=== PATIENT | male | born 1950 | race Caucasian/White ===

== ENCOUNTER 2018-03-28 14:27 | Emergency (ER) | payer MEDICARE ==
[2018-03-28 14:45] VITALS: BP 177/85
--- NOTE | 2018-03-28 16:00 | ED Physician Documentation ---
PD HPI HEENT - Stated complaint Stated Complaint: NECK SWOLLEN - Chief complaint Chief Complaint: Heent - History obtained from History obtained from: Patient - History of Present Illness Timing - onset: How many weeks ago (3-4) Timing - details: Gradual onset, Still present (it is more swelling, tender the past few days.) Recently seen: Clinic (seen in clinic and referred to get U/S.) Review of Systems Constitutional: denies: Fever, Chills, Myalgias Ears: denies: Drainage/discharge Nose: denies: Rhinorrhea / runny nose, Congestion Throat: denies: Sore throat PD PAST MEDICAL HISTORY - Past Medical History Cardiovascular: None Respiratory: None Neuro: None Endocrine/Autoimmune: None - Present Medications Home Medications: Ambulatory Orders Medication Instructions Recorded Confirmed Cephalexin [Keflex] 500 mg PO QID #24 capsule 03/28/18 Naproxen 375 mg PO BID #20 tablet 03/28/18 - Allergies Allergies/Adverse Reactions: Allergies Allergy/AdvReac Type Severity Reaction Status Date / Time No Known Drug Allergies Allergy Verified 03/28/18 14:44 PD ED PE NORMAL - Vitals Vital signs reviewed: Yes - General General: Alert and oriented X 3, No acute distress, Well developed/nourished - HEENT HEENT: Ears normal, Moist mucous membranes, Pharynx benign, Other (left side of neck with 2-3 cm diameter and rounded tenderness. No redness over the skin. ) - Neck Neck: Supple, no meningeal sign, Other (left sided adenopathy with bedsie U/S showing glandular sctrucutre. No abscess) - Cardiac Cardiac: RRR, No murmur - Respiratory Respiratory: Clear bilaterally - Derm Derm: Normal color, Warm and dry, No rash - Neuro Neuro: Alert and oriented X 3, No motor deficit, Normal speech Results - Vitals Vitals: Oxygen O2 Source Room air - Rads (name of study) bedside U/S Radiology: EMP read contemporaneously (the lump has structure , good circumstances with v) PD MEDICAL DECISION MAKING - ED course Complexity details: considered differential (isolated node to left of neck, with now swelling of it. Consider infectious adenitis at this point, but has underlying process can do a biopsy so [facility] ), d/w patient Departure - Departure Disposition: 01 Home, Self Care Clinical Impression: Cervical lymphadenitis Condition: Stable Record reviewed to determine appropriate education?: Yes Instructions: ED Cervical Adenitis Abx Tx Follow-Up: Dave Viera MD [Primary Care Provider] - Rolando Lopez MD [Provider Admit Priv/Credential] - Prescriptions: Cephalexin [Keflex] 500 mg PO QID #24 capsule Naproxen 375 mg PO BID #20 tablet Comments: Warm moist towels to the lymph node area couple times a day to promote good blood flow to the area and help carry away debris and infection. Naproxen twice daily for 7-10 days. Cephalexin antibiotic as directed. Initially will treated as inflammation and infection of the lymph node. If it has not resolved well for the next week or so, then a lymph node biopsy is likely indicated. He can follow-up with surgery for that and they should be able to do it in their office. Call the surgery office for an appointment for about a week from now. Discharge Date/Time: 03/28/18 17:06
== END 2018-03-28 17:06 | disposition home or self-care (01) ==
LOC: ED 14:27
DX: R59.1 Generalized enlarged lymph nodes (principal)
CPT/HCPCS: 99283

== ENCOUNTER 2018-04-22 14:37 | Outpatient (CLI) | payer MEDICARE ==
--- NOTE | 2018-04-22 16:03 | Ultrasound Report ---
Reason: URINARY FREQUENCY,2.5CM FIXED FIRM L ANTERIOR NECK Procedure Date: 04/22/2018 Accession Number: [id number] / [id number] Procedure: US - Head or Neck Soft Tissue CPT Code: FULL RESULT: EXAM: NECK ULTRASOUND EXAM DATE: 04/22/2018 03:35 PM. CLINICAL HISTORY: URINARY FREQUENCY,2. 5CM FIXED FIRM L ANTERIOR NECK. COMPARISON: 04/22/2018 3:48 PM. TECHNIQUE: Real-time sonographic imaging was performed by the jackaroo utilizing color-flow. Multiple group sales representative static images were saved for review. FINDINGS: The palpable finding is identified as a 2.8 x 1.4 x 1.9 cm hypoechoic mass with vascularity. The finding is nonspecific. There is no evidence of abscess formation. IMPRESSION: Abnormal appearing to an 8 cm mass is nonspecific. Given reported history of decreased size with antibiotic administration, short-term ultrasound follow-up is reasonable. Alternatively, core biopsy for definitive diagnosis could be pursued. RADIA
--- NOTE | 2018-04-22 22:53 | Ultrasound Report ---
Reason: URINARY FREQUENCY,2.5CM FIXED FIRM L ANTERIOR NECK Procedure Date: 04/22/2018 Accession Number: [id number] / [id number] Procedure: US - Bladder CPT Code: FULL RESULT: EXAM: PELVIS ULTRASOUND, LIMITED EXAM DATE: 04/22/2018 04:25 PM. CLINICAL HISTORY: Urinary frequency. COMPARISON: None. TECHNIQUE: Real-time scanning was performed with static images obtained. FINDINGS: Low prevoid bladder volume. This limits assessment of baseline bladder contour. Prevoid bladder volume was 94 cc. Post void residual bladder volume of 12 cc. Bilateral ureteral jets were seen. No intraluminal stones or debris. The prostate measures 3.1 x 2.5 x 4.3 cm, volume 17 cc. IMPRESSION: 1. Low prevoid bladder volume which limits assessment of bladder contour. 2. Post void residual bladder volume of 12 cc. Bilateral ureteral jets were seen. 3. The prostate demonstrates a volume of 17 cc. RADIA
== END 2018-04-22 14:38 | disposition home or self-care (01) ==
LOC: DI 14:37
PROVIDERS: ATTEND Internal Medicine
DX: R35.0 Frequency of micturition (principal); R59.0 Localized enlarged lymph nodes
CPT/HCPCS: 76536; 76857

== ENCOUNTER 2023-10-04 14:42 | Outpatient (CLI) | payer MEDICARE | END 2023-10-04 23:59 | disposition short-term general hospital (02) | LOC: EMS 14:42 | DX: I21.3 ST elevation (STEMI) myocardial infarction of unspecified site (principal) | CPT/HCPCS: A0425; A0427 ==

== ENCOUNTER 2023-10-27 11:33 | Inpatient (IN) | payer MEDICARE ==
--- NOTE | 2023-10-27 12:12 | XRAY Report ---
PROCEDURE: Chest 1V INDICATIONS: Chest pain TECHNIQUE: One view of the chest was acquired. COMPARISON: None. FINDINGS: Surgical changes and devices: None. Lungs and pleura: No pleural effusions or pneumothorax. Lungs are clear. Mediastinum: Mediastinal contours appear normal. Heart size is normal. Bones and chest wall: No suspicious bony lesions. Overlying soft tissues appear unremarkable. IMPRESSION: No acute cardiopulmonary process. Reviewed by: Neela Lam MD on 10/27/2023 12:10 PM PDT Approved by: Neela Lam MD on 10/27/2023 12:10 PM PDT Station ID: [id number]
[2023-10-27 12:43] LABS: BASOPHILS # (AUTO) 0.1 10^3/uL (0.0-0.1); BASOPHILS % (AUTO) 0.9 %; EOSINOPHILS # (AUTO) 0.3 10^3/uL (0.0-0.7); EOSINOPHILS % (AUTO) 4.5 %; HCT - HEMATOCRIT 25.3 % (42.0-52.0); HGB - HEMOGLOBIN 7.5 g/dL (14.0-18.0); LYMPHOCYTES # (AUTO) 0.9 10^3/uL (1.5-3.5); LYMPHOCYTES % (AUTO) 11.6 %; MEAN CORPUSCULAR HEMOGLOBIN 29.4 pg (27.0-31.0); MEAN CORPUSCULAR HGB CONC 29.6 g/dL (32.0-36.0); MEAN CORPUSCULAR VOLUME 99.2 fL (80.0-94.0); MEAN PLATELET VOLUME 9.5 fL (7.4-11.4); MONOCYTES # (AUTO) 0.7 10^3/uL (0.0-1.0); MONOCYTES % (AUTO) 8.8 %; NEUTROPHILS # (AUTO) 5.5 10^3/uL (1.5-6.6); NEUTROPHILS % (AUTO) 73.9 %; PLT - PLATELET COUNT 513 10^3/uL (130-450); RED BLOOD COUNT 2.55 10^6/uL (4.70-6.10); RED CELL DISTRIBUTION WIDTH 13.9 % (12.0-15.0); WHITE BLOOD COUNT 7.5 x10^3/uL (4.8-10.8)
[2023-10-27 12:58] LABS: ALBUMIN 3.9 g/dL (3.2-5.5); ALBUMIN/GLOBULIN RATIO 1.8 (1.0-2.2); BILIRUBIN,TOTAL 0.4 mg/dL (0.2-1.0); CALCIUM 9.2 mg/dL (8.5-10.3); CREATININE 0.8 mg/dL (0.6-1.3); POTASSIUM 4.4 mmol/L (3.5-4.5); TOTAL PROTEIN 6.1 g/dL (6.4-8.9)
[2023-10-27 13:06] LABS: TROPONIN I HIGH SENSITIVITY 24.5 ng/L (2.3-19.7)
--- NOTE | 2023-10-27 13:40 | ED Physician Documentation ---
PD HPI ALTERED MENTAL STATUS - Stated complaint Stated Complaint: DIZZINESS,CONFUSION,WEAKNESS - Chief complaint Chief Complaint: Cardiac - History obtained from History obtained from: Patient - History of Present Illness Timing - onset: How many days ago (he has noted feeling weaker and lightheaded the past 2-3 days, increasing, and caregivers (neighbors and friends) noted him to be forgetful and confused. No noted fall nor injury. Pt denies headache.) Timing - duration: Days Timing - details: Gradual onset, Still present, Waxing and waning Quality / character: Confused, Memory Loss (forgetful) Associated symptoms: Dyspnea, General weakness. No: Fever, Headache, Cough, NVD Contributing factors: Anticoagulated (aspirin and Effient.), Recent med change (has been on 5 new meds since October 03 after stent.) Similar symptoms before: Has not had sx before Recently seen: Admitted (for VT with stents x 2 on in [facility].) Review of Systems Constitutional: denies: Fever Nose: denies: Rhinorrhea / runny nose, Congestion Throat: denies: Sore throat Respiratory: denies: Cough PD PAST MEDICAL HISTORY - Past Medical History Past Medical History: Yes Cardiovascular: High cholesterol, Coronary artery disease, VT (Oct 03 2023, with stents x 2 inferior vessels.) Respiratory: None Neuro: None Endocrine/Autoimmune: None - Past Surgical History Past Surgical History: No - Present Medications Home Medications: Ambulatory Orders Medication Instructions Recorded Confirmed Aspirin [[place] Aspirin] 81 mg 10/27/23 Atorvastatin [Lipitor] 60 mg 10/27/23 Metoprolol Tartrate [Lopressor] 25 mg 10/27/23 Nicotine 21 mg Patch [Nicoderm] 1 patch 10/27/23 Nitroglycerin [Nitrostat] 0.4 mg 10/27/23 Pantoprazole [Protonix] 40 10/27/23 Prasugrel HCl 10 DAILY 10/27/23 lisinopriL [Zestril] 5 mg 10/27/23 - Allergies Allergies/Adverse Reactions: Allergies Allergy/AdvReac Type Severity Reaction Status Date / Time No Known Drug Allergies Allergy Verified 10/27/23 11:51 - Social History Does the pt smoke?: Yes Smoking Status: Current every day smoker Does the pt drink ETOH?: Yes Does the pt have substance abuse?: No - POLST Patient has POLST: No PD ED PE NORMAL - Vitals Vital signs reviewed: Yes - General General: Alert and oriented X 3 (but is forgetful of symptoms from when discharged 2 weeks ago. He is having some repetitive questions here. No aphasia. ), No acute distress, Well developed/nourished - HEENT HEENT: Atraumatic - Neck Neck: Supple, no meningeal sign, No adenopathy - Cardiac Cardiac: RRR, No murmur - Respiratory Respiratory: No respiratory distress, Clear bilaterally - Abdomen Abdomen: Soft, Non tender - Rectal Rectal: Other (brown colored stool in vault, not black, but tests guaiac psoitive. ) - Derm Derm: Normal color, Warm and dry - Neuro Neuro: wrapping machine tender 2-12 intact, No motor deficit, No sensory deficit, Normal speech Eye Opening: Spontaneous Motor: Obeys Commands Verbal: Oriented GCS Score: 15 Results - Vitals Vitals: Vital Signs - 24 hr 10/27/23 10/27/23 10/27/23 11:42 13:51 15:00 Temperature 36.0 C L Heart Rate 57 L 47 L 56 L Heart Rate [ Monitoring electrodes] Respiratory 15 14 14 Rate Blood Pressure 111/56 L 108/64 Blood Pressure [Left Brachial artery] O2 Saturation 100 98 100 10/27/23 10/27/23 10/27/23 17:00 19:00 20:15 Temperature 36.9 C Heart Rate 57 L 56 L Heart Rate [ Monitoring electrodes] Respiratory 13 13 62 H Rate Blood Pressure 93/74 125/65 Blood Pressure 140/57 H [Left Brachial artery] O2 Saturation 100 100 100 10/27/23 10/27/23 10/27/23 20:33 20:50 21:00 Temperature 36.9 C 37.0 C 37.0 C Heart Rate 62 Heart Rate [ 60 Monitoring electrodes] Respiratory 16 16 13 Rate Blood Pressure 152/84 H Blood Pressure 146/58 H 142/71 H [Left Brachial artery] O2 Saturation 100 100 100 10/27/23 21:01 Temperature Heart Rate Heart Rate [ 58 L Monitoring electrodes] Respiratory 13 Rate Blood Pressure Blood Pressure 152/84 H [Left Brachial artery] O2 Saturation 100 Oxygen O2 Source Room air - Labs Labs: Microbiology 10/27/23 18:30 Occult Blood - Final Stool - Formed Laboratory Tests 10/27/23 10/27/23 10/27/23 12:36 12:36 12:36 WBC 7.5 RBC 2.55 L Hgb 7.5 L Hct 25.3 L MCV 99.2 H MCH 29.4 MCHC 29.6 L RDW 13.9 Plt Count 513 H MPV 9.5 Neut # (Auto) 5.5 Lymph # (Auto) 0.9 L Crook # (Auto) 0.7 Eos # (Auto) 0.3 Baso # (Auto) 0.1 Absolute Nucleated RBC 0.00 Nucleated RBC % 0.0 ESR Sodium 138 Potassium 4.4 Chloride 106 Carbon Dioxide 26 Anion Gap 6.0 BUN 32 H Creatinine 0.8 Estimated GFR (MDRD) 95 Glucose 100 Calcium 9.2 Phosphorus Magnesium Total Bilirubin 0.4 AST 17 ALT 19 Alkaline Phosphatase 72 Troponin I High Sens 24.5 H* Total Protein 6.1 L Albumin 3.9 Globulin 2.2 Albumin/Globulin Ratio 1.8 Lipase 26 Urine Color Urine Clarity Urine pH Ur Specific [place] Urine Protein Urine Glucose (UA) Urine Ketones Urine Occult Blood Urine Nitrite Urine Bilirubin Urine Urobilinogen Ur Leukocyte Esterase Ur Microscopic Review Urine Culture Comments Blood Type Blood Type Recheck O POSITIVE Antibody Screen Crossmatch IS Only 10/27/23 10/27/23 10/27/23 14:50 14:50 14:50 WBC RBC Hgb Hct MCV MCH MCHC RDW Plt Count MPV Neut # (Auto) Lymph # (Auto) Crook # (Auto) Eos # (Auto) Baso # (Auto) Absolute Nucleated RBC Nucleated RBC % ESR 45 H Sodium Potassium Chloride Carbon Dioxide Anion Gap BUN Creatinine Estimated GFR (MDRD) Glucose Calcium Phosphorus 4.0 Magnesium 2.1 Total Bilirubin AST ALT Alkaline Phosphatase Troponin I High Sens 25.7 H* Total Protein Albumin Globulin Albumin/Globulin Ratio Lipase Urine Color Urine Clarity Urine pH Ur Specific [place] Urine Protein Urine Glucose (UA) Urine Ketones Urine Occult Blood Urine Nitrite Urine Bilirubin Urine Urobilinogen Ur Leukocyte Esterase Ur Microscopic Review Urine Culture Comments Blood Type Blood Type Recheck Antibody Screen Crossmatch IS Only 10/27/23 10/27/23 10/27/23 19:03 19:20 21:00 WBC RBC Hgb 6.9 L* Hct 22.9 L MCV MCH MCHC RDW Plt Count MPV Neut # (Auto) Lymph # (Auto) Crook # (Auto) Eos # (Auto) Baso # (Auto) Absolute Nucleated RBC Nucleated RBC % ESR Sodium Potassium Chloride Carbon Dioxide Anion Gap BUN Creatinine Estimated GFR (MDRD) Glucose Calcium Phosphorus Magnesium Total Bilirubin AST ALT Alkaline Phosphatase Troponin I High Sens Total Protein Albumin Globulin Albumin/Globulin Ratio Lipase Urine Color YELLOW Urine Clarity CLEAR Urine pH 6.0 Ur Specific [place] 1.020 Urine Protein NEGATIVE Urine Glucose (UA) NEGATIVE Urine Ketones NEGATIVE Urine Occult Blood TRACE-INTA Urine Nitrite NEGATIVE Urine Bilirubin NEGATIVE Urine Urobilinogen 0.2 (NORMAL) Ur Leukocyte Esterase NEGATIVE Ur Microscopic Review NOT INDICATED Urine Culture Comments NOT INDICATED Blood Type O POSITIVE Blood Type Recheck Antibody Screen NEGATIVE Crossmatch IS Only See Detail PD Medical Decision Making - ED course Complexity details: reviewed old records (Information from [facility] regarding his stay there showed a hemoglobin of 12.7 on October 04. He had been doing well enough on discharge.), considered differential (The patient has had confusion and forgetfulness as well as a feeling of general weakness over the past several days in particular. He has memory is poor at this point about events around discharge. His neighbor/friend says the neighborhood folks have been checking in on him often. ), d/w patient, other (neighbor/friend) Reviewed Lab Results: With concern for acute stroke given his symptoms, we did do an MRI. He had had symptoms for at least 2 to 3 days so I did not see a reason for CT scan per se. We were subsequently able to get an MRI and there was no acute abnormalities noted other than age-related changes. ED course: The neighbor/friend who is here with him states several neighbors have been checking in on him and helping take care. The impression was he had been having more confusion in the last several days. The patient is not aware of having problems upon discharge. He denies any illness, fever, stomach pains, diarrhea or melena. He denies any cold or flu symptoms the last several days. He is been taking his medications regularly. Here in the ER, his blood pressures slightly low at approximately 100-1 10 systolic. Heart rate is mildly bradycardic in the 50s. I would anticipate this to be appropriate heart rate based on his recent VT and being discharged on metoprolol and lisinopril as well as aspirin and antiplatelet agent anticholesterol medicine. Consideration for his symptoms can be relative hypotension especially when up and around which can lead to decreased cerebral perfusion. We may need to back down on some of his medicines and in particular I would think of the lisinopril as a beta-nataliya would be more important post stents. Consideration for cholesterol medicines causing some cognitive effect and in the short-term we could remove or reduce the atorvastatin which was at 80 mg. I presume we would not want to change the aspirin, effluent, metoprolol as those would be more villavicencio post heart stent. I did notice that his blood count was low with a hemoglobin of 7.5. It took some time to get records from his stay at [facility]. Comparison then showed there to be a considerable drop in hemoglobin. He had not had a stool output here and so I did do a rectal exam. This was faintly guaiac positive. Given his symptoms of some confusion and weakness, even though he is hemoglobin is not below 7 he has still had a recent heart attack and stents placed and I feel least a unit of blood would be appropriate. He is agreeable. I will consult with cardiology to see if there is any chance of holding on the antiplatelet agent but I think that would be more crucial to keep on. I will add a H2 nataliya per her [place] proton pump inhibitor of Protonix presuming a upper GI. He is not have any abdominal pain or tenderness. I did talk with Dr. Sotelo who was on-call for surgery just as a phone consult and he is available for formal consult if needed. Consideration would be to place the patient in the hospital for getting a unit of blood and then sequential hemoglobins and see how he does on medicine service with their consulting surgery if needed. At this point I do not see any cardiac specific condition and so I do not see a need to transfer back to the cardiology service per se. We will talk with the hospitalist service to see if they are okay on this. The patient was given some IV fluid bolus. His blood pressure remains adequate. Departure - Departure Disposition: ED Place in Observation Clinical Impression: Confusion, Acute anemia, History of heart artery stent, Lightheadedness, Symptomatic anemia, GI bleed, Antiplatelet or antithrombotic long-term use Condition: Stable Record reviewed to determine appropriate education?: Yes
[2023-10-27 15:11] LABS: MAGNESIUM 2.1 mg/dL (1.7-2.3)
[2023-10-27] MEDS: SODIUM CHLORIDE 0.9% 500 ML IV STA ×2 (17:07→19:55)
--- NOTE | 2023-10-27 18:02 | MRI Report ---
PROCEDURE: Brain WO INDICATIONS: confusion, forgetful 1-2 days; heart stent 2 wk ag TECHNIQUE: Noncontrast axial T1 spin echo, axial T2 fast spin echo, sagittal and axial FLAIR, coronal T2 fast sp in echo, axial gradient echo, axial diffusion and ADC through the brain. COMPARISON: None. FINDINGS: Image quality: Excellent. The ventricular system and cortical sulci demonstrate atrophy, consistent for patient's stated age. There are areas of hyperintense T2/FLAIR signal in the periventricular and subcortical white matter. There is no acute intra or extra-axial fluid collection. No acute hemorrhage, mass lesion or midlin e shift. Brainstem is unremarkable. There are no areas of restricted diffusion. Globes are symmetr ical. Sinuses are aerated. Osseous structures are intact. IMPRESSION: 1. No acute intracranial process. 2. Moderate atrophy and chronic microvascular ischemic changes. Reviewed by: Neela Lam MD on 10/27/2023 6:00 PM PDT Approved by: Neela Lam MD on 10/27/2023 6:00 PM PDT Station ID: [id number]
[2023-10-27] MEDS: PANTOPRAZOLE 40 MG VIAL IVP STA (19:16)
[2023-10-27 19:25] LABS: HCT - HEMATOCRIT 22.9 % (42.0-52.0)
[2023-10-27 19:28] LABS: HGB - HEMOGLOBIN 6.9 g/dL (14.0-18.0)
--- NOTE | 2023-10-27 20:42 | ED Physician Documentation ---
ED Addendum - Addendum Addendum: 10/27/23 Patient signed out to me at shift change from Dr. Hammer. In short, patient recently underwent cardiac stent placement after a STEMI and was treated at [facility]. He is presenting with recent weakness, confusion and lightheadedness. He was found to be acutely anemic with heme positive stools. Patient is on Effient as well as aspirin. Dr. Hammer did speak with bridge club manager associated with [facility] they did recommend that he continue on Effient given his recent stent placement. They did state that Plavix could be considered as an alternative as it may be better tolerated. Patient is awaiting admission to the hospital. Hospitalist has been paged at shift change but we are awaiting response from telehospitalist service. I spoke with Dr. Chamberlain (tele hospitalist) who will admit the patient for further management. He would appreciate surgery's input. Repeat H&H has slightly decreased to 6.9. Dr. Garcia (Gen Surg) will plan to see patient in the morning. Departure - Departure Disposition: ED Place in Observation Clinical Impression: Confusion, Acute anemia, History of heart artery stent, Lightheadedness, Symptomatic anemia, GI bleed, Antiplatelet or antithrombotic long-term use Condition: Stable
--- NOTE | 2023-10-27 20:42 | PROVIDER PROGRESS NOTE ---
Progress Note General Surgery Phone Note: I was notified by the ED physician that the admitting physician for this patient has asked for a surgery consult regarding the patient's anemia. I was told that the consult could be performed tomorrow morning as the patient demonstrated no hemodynamic instability, hematemesis, or melena and did not require urgent or emergent GI endoscopic evaluation at this time. Samson Garcia MD, FACS General Surgery Service
[2023-10-27 21:10] LABS: BILIRUBIN,URINE NEGATIVE (NEGATIVE); GLUCOSE, URINE (UA) NEGATIVE (NEGATIVE); KETONES,URINE (UA) NEGATIVE (NEGATIVE); LEUKOCYTE ESTERASE, URINE NEGATIVE (NEGATIVE); NITRITE,URINE NEGATIVE (NEGATIVE); OCCULT BLOOD,URINE TRACE-INTA (NEGATIVE); PROTEIN,URINE NEGATIVE (NEGATIVE); UROBILINOGEN,URINE 0.2 (NORMAL) E.U./dL (NORMAL)
[2023-10-27 21:13] LABS: CLARITY,URINE CLEAR (CLEAR)
[2023-10-27] MEDS ORDERED: ONDANSETRON 4 MG/2 ML VIAL IVP PRN (21:13)
[2023-10-27] MEDS ORDERED: ACETAMINOPHEN 325 MG TABLET PO PRN (21:13)
[2023-10-27] MEDS ORDERED: SODIUM CHLORIDE FLUSH 0.9% 10 ML SYRINGE IVP PRN (21:13)
[2023-10-27] MEDS ORDERED: PANTOPRAZOLE 40 MG VIAL IV SCH (22:00)
--- NOTE | 2023-10-27 22:13 | CT Report ---
PROCEDURE: Abdomen/Pelvis WO INDICATIONS: gi bleeding TECHNIQUE: A CT scan of the abdomen and pelvis was performed without the use of intravenous contrast. Images we re recorded and evaluated at appropriate window settings. Reformats: coronal and sagittal. For radiat ion dose reduction, the following was used: automated exposure control, adjustment of mA and/or kV ac cording to patient size. COMPARISON: Ultrasound of gallbladder dated 04/22/2018. FINDINGS: Image quality: Diagnostic. Respiratory motion is noted. Lower chest: Bibasilar dependent atelectasis is seen. Heart size is mildly enlarged, no pericardial e ffusion.. Liver: No contour-deforming mass. Gallbladder: No radiopaque stones or wall thickening. Biliary tree: No intrahepatic or extrahepatic dilation, accounting for age. Spleen: No splenomegaly. Pancreas: No pancreatic ductal dilation. Adrenals: No adrenal nodule. Kidneys and ureters: No hydronephrosis. No contour-deforming mass. Stomach, bowel and peritoneum: No gastric or small bowel dilation. No abnormal wall thickening. No pa thologic free fluid. Appendix is visualized and is within normal limits. No peritoneal free air. No a bscess collection. Lymph nodes: No central or retroperitoneal adenopathy. Vessels: No infrarenal aortic aneurysm. Reproductive organs: Unremarkable. Bladder: Bladder wall thickness is normal, accounting for underdistention. No calcified bladder stone s. Pelvic lymph nodes: No adenopathy by size criteria. Bones: No aggressive osseous abnormality. Other: No significant ventral or inguinal hernia. IMPRESSION: 1. No bowel obstruction or gross abnormal bowel wall thickening. No abscess collection. No free fluid of free air. No retroperitoneal hematoma. Normal appendix. 2. No renal stones or hydronephrosis. 3. Bibasilar dependent atelectasis. Reviewed by: Jose Rodriguez MD on 10/27/2023 10:12 PM PDT Approved by: Jose Rodriguez MD on 10/27/2023 10:12 PM PDT Station ID: [id number]
[2023-10-27] MEDS: LACTATED RINGERS 1,000 ML IV SCH (23:04)
[2023-10-28 00:11] LABS: BASOPHILS # (AUTO) 0.1 10^3/uL (0.0-0.1); BASOPHILS % (AUTO) 0.7 %; EOSINOPHILS # (AUTO) 0.4 10^3/uL (0.0-0.7); EOSINOPHILS % (AUTO) 3.5 %; HCT - HEMATOCRIT 26.3 % (42.0-52.0); HGB - HEMOGLOBIN 8.3 g/dL (14.0-18.0); LYMPHOCYTES # (AUTO) 1.4 10^3/uL (1.5-3.5); LYMPHOCYTES % (AUTO) 13.3 %; MEAN CORPUSCULAR HEMOGLOBIN 29.9 pg (27.0-31.0); MEAN CORPUSCULAR HGB CONC 31.6 g/dL (32.0-36.0); MEAN CORPUSCULAR VOLUME 94.6 fL (80.0-94.0); MEAN PLATELET VOLUME 9.5 fL (7.4-11.4); MONOCYTES # (AUTO) 1.1 10^3/uL (0.0-1.0); MONOCYTES % (AUTO) 10.8 %; NEUTROPHILS # (AUTO) 7.5 10^3/uL (1.5-6.6); NEUTROPHILS % (AUTO) 71.5 %; PLT - PLATELET COUNT 453 10^3/uL (130-450); RED BLOOD COUNT 2.78 10^6/uL (4.70-6.10); RED CELL DISTRIBUTION WIDTH 14.3 % (12.0-15.0); WHITE BLOOD COUNT 10.5 x10^3/uL (4.8-10.8)
[2023-10-28 00:31] LABS: CHOL/HDL RATIO 2.3 (<5.0); CHOLESTEROL 121 mg/dL; HDL CHOLESTEROL 52 mg/dL; LDL CHOLESTEROL,CALCULATED 54 mg/dL; TRIGLYCERIDES 77 mg/dL (48-352); VLDL CHOLESTEROL 15 mg/dL
[2023-10-28 00:33] LABS: MAGNESIUM 2.1 mg/dL (1.7-2.3)
[2023-10-28 00:46] LABS: ALBUMIN 3.7 g/dL (3.2-5.5); ALBUMIN/GLOBULIN RATIO 1.5 (1.0-2.2); BILIRUBIN,TOTAL 0.4 mg/dL (0.2-1.0); CALCIUM 8.7 mg/dL (8.5-10.3); CREATININE 0.8 mg/dL (0.6-1.3); POTASSIUM 3.9 mmol/L (3.5-4.5); TOTAL PROTEIN 6.1 g/dL (6.4-8.9)
--- NOTE | 2023-10-28 00:57 | HISTORY & PHYSICAL EXAMINATION ---
Chief Complaint - Chief Complaint Chief Complaint: weakness, brbpr History of Present Illness - History of Present Illness HPI Comment/Other: pt with h/o cad and recent stemi early september 2023, s/p stent placement x 2, on effient and asa. currently presents with confusion / ams as noted by neighbors and caregivers and even self-reported. no falls, seizures, head injuries. pt also reports feeling overall weak and having brbpr. no dysuria or hematuria. no chest pain, sob, fevers, chills. no MARKS. pt states having h/o noticing blood in stools and denies ever having a colonoscopy in the past. he reports h/o constipation and has taken senna supplements. History - Past Medical History Cardiovascular: reports: High cholesterol, Coronary artery disease, [place] Respiratory: reports: None Neuro: reports: None Endocrine/Autoimmune: reports: None - POLST Patient has POLST: No Meds/Allgy - Home Medications Home Medications: Ambulatory Orders Medication Instructions Recorded Confirmed Aspirin [[place] Aspirin] 81 mg 10/27/23 Atorvastatin [Lipitor] 60 mg 10/27/23 Metoprolol Tartrate [Lopressor] 25 mg 10/27/23 Nicotine 21 mg Patch [Nicoderm] 1 patch 10/27/23 Nitroglycerin [Nitrostat] 0.4 mg 10/27/23 Pantoprazole [Protonix] 40 10/27/23 Prasugrel HCl 10 DAILY 10/27/23 lisinopriL [Zestril] 5 mg 10/27/23 - Allergies Allergies/Adverse Reactions: Allergies Allergy/AdvReac Type Severity Reaction Status Date / Time No Known Drug Allergies Allergy Verified 10/27/23 11:51 Review of Systems - Other Findings Other Findings: 14 pt review done with positives per hpi; all others reviewed as negative Exam - Vital Signs Vital Signs: Vital Signs x48h Temp Pulse Pulse Pulse Resp BP BP 10/27/23 22:58 36.4 C L 54 L 18 10/27/23 22:00 37.1 C 59 L 18 10/27/23 21:30 55 L 16 149/78 H 10/27/23 21:15 60 14 140/73 H 10/27/23 21:01 58 L 13 152/84 H 10/27/23 21:00 37.0 C 62 13 152/84 H 10/27/23 20:50 37.0 C 60 16 142/71 H 10/27/23 20:33 36.9 C 16 146/58 H 10/27/23 20:15 36.9 C 62 H 140/57 H 10/27/23 19:00 56 L 13 125/65 10/27/23 17:00 57 L 13 93/74 BP Pulse Ox 10/27/23 22:58 128/57 L 99 10/27/23 22:00 143/67 H 99 10/27/23 21:30 99 10/27/23 21:15 100 10/27/23 21:01 100 10/27/23 21:00 100 10/27/23 20:50 100 10/27/23 20:33 100 10/27/23 20:15 100 10/27/23 19:00 100 10/27/23 17:00 100 - Physical Exam Comments/Other: gen - awake, alert, slightly confused but able to answer question, nad heent - eomi, nc/at heart - per ed charting lungs - per ed charting abd - per ed charting msk - no acute trauma noted or reported Conclusion/Plan - Lab Results Fish Bones: 10/27/23 23:54 10/27/23 23:54 - Other Other Results/Comments: pt with - - gi bleeding pt states having long-term h/o this and denies ever having colonscopy gen surg on case, appreciate recommendations transfuse for hgb <7 - blood loss anemia d/t above transfuse as needed - ams d/t above (volume depletion, weakness) no focal neuro deficits - cad h/o stemi, now on asa and prasugrel cardiology recommends continuing above meds at this time f/u labs, h/h, replete electrolytes further orders per clinical course
[2023-10-28] MEDS: SODIUM CHLORIDE FLUSH 0.9% 10 ML SYRINGE IVP SCH (01:27)
[2023-10-28 05:30] LABS: BASOPHILS # (AUTO) 0.1 10^3/uL (0.0-0.1); BASOPHILS % (AUTO) 0.5 %; EOSINOPHILS # (AUTO) 0.5 10^3/uL (0.0-0.7); EOSINOPHILS % (AUTO) 4.9 %; HCT - HEMATOCRIT 24.1 % (42.0-52.0); HGB - HEMOGLOBIN 7.5 g/dL (14.0-18.0); LYMPHOCYTES # (AUTO) 1.1 10^3/uL (1.5-3.5); LYMPHOCYTES % (AUTO) 11.9 %; MEAN CORPUSCULAR HEMOGLOBIN 29.4 pg (27.0-31.0); MEAN CORPUSCULAR HGB CONC 31.1 g/dL (32.0-36.0); MEAN CORPUSCULAR VOLUME 94.5 fL (80.0-94.0); MEAN PLATELET VOLUME 9.3 fL (7.4-11.4); MONOCYTES % (AUTO) 11.4 %; NEUTROPHILS # (AUTO) 6.5 10^3/uL (1.5-6.6); PLT - PLATELET COUNT 409 10^3/uL (130-450); RED BLOOD COUNT 2.55 10^6/uL (4.70-6.10); RED CELL DISTRIBUTION WIDTH 14.5 % (12.0-15.0); WHITE BLOOD COUNT 9.1 x10^3/uL (4.8-10.8)
[2023-10-28 05:53] LABS: ALBUMIN 3.4 g/dL (3.2-5.5); ALBUMIN/GLOBULIN RATIO 1.6 (1.0-2.2); BILIRUBIN,TOTAL 0.5 mg/dL (0.2-1.0); CALCIUM 8.7 mg/dL (8.5-10.3); CREATININE 0.7 mg/dL (0.6-1.3); MAGNESIUM 1.9 mg/dL (1.7-2.3); POTASSIUM 4.1 mmol/L (3.5-4.5); TOTAL PROTEIN 5.5 g/dL (6.4-8.9)
--- NOTE | 2023-10-28 06:31 | CONSULTATION NOTE ---
Surgery Consult - Admit Date Hospital Admission Date: 10/27/23 - Home Meds/Allergies Home Medications: Patient History Medication Instructions Recorded Confirmed Aspirin [[place] Aspirin] 81 mg 10/27/23 Atorvastatin [Lipitor] 60 mg 10/27/23 Metoprolol Tartrate [Lopressor] 25 mg 10/27/23 Nicotine 21 mg Patch [Nicoderm] 1 patch 10/27/23 Nitroglycerin [Nitrostat] 0.4 mg 10/27/23 Pantoprazole [Protonix] 40 10/27/23 Prasugrel HCl 10 DAILY 10/27/23 lisinopriL [Zestril] 5 mg 10/27/23 Allergies/Adverse Reactions: Allergies Allergy/AdvReac Type Severity Reaction Status Date / Time No Known Drug Allergies Allergy Verified 10/27/23 11:51 - Vital Signs Vital Signs: Last Vital Signs Temp 98.8 F 10/28/23 00:25 Pulse 55 L 10/28/23 00:25 Resp 14 10/28/23 00:25 BP 130/63 10/28/23 00:25 Pulse Ox 99 10/28/23 00:25 O2 Flow Rate Intake & Output: Intake & Output 10/25/23 10/26/23 10/27/23 10/28/23 23:59 23:59 23:59 23:59 Intake Total 1310 Output Total 200 425 Balance 1110 -425 - Lab Results Result Diagrams: 10/28/23 05:16 10/28/23 05:16 - Consultation Note Consultation Note: General Surgery Consultation Note Assessment: 1) Acute anemia in a patient on dual anti-platelet therapy s/p coronary artery stent placement for acute WA less than 1 month ago. No history of overt GI blood loss. Recommendation: 1) Transfuse to maintain a Hgb >8 gm/dL 2) Begin PPI an in-patient and continue as out-patient 3) FU Cardiology. He has an appointment in [place] later this month but needs clarification regarding who and when. 4) Once he has seen his Oil Dispenser, arrangements can be made for a GI work-up (EGD/CS) as an out-patient. This will require input from the Oil Dispenser regarding the management of his dual anti-platelet therapy to reduce the risk of stent thrombosis during the endoscopic procedures. The procedures can be performed either by the [facility] or here at [facility] depending upon patient and Cardiology preference. <><><><><><><><><><> Reason for Consultation Anemia Chief Complaint Dizzy HPI Wilson is a 73 year old man who suffered a myocardial infarction October 04, 2023. He underwent angiography with stent placement and was discharged from [facility] on October 07, 2023 on dual anti-platelet therapy. He developed weakness, SOB, and syncope yesterday and brought himself to the ED where he was found to be profoundly anemic (6.9/22.9). He was admitted to the Medical Hospitalist Service and transfused one unit of PRBC. Surgery was asked to assist in the evaluation and management of his anemia. Wilson denied nausea, vomiting, hematemesis, melena, or hematochezia. he has a chronic problem with hemorrhoids and on occasion notices BRB on the tissue. He denies prior colonoscopy but admits to a flex sig exam sometime in the past. He is unclear on the date. he denies the use of NSAIDS other that the prescribed ASA and he has never had PUD. [place] and his ex- has assisted him during the management of his WA. Past Medical History CAD, s/p recent WA Increased cholesterol Past Surgical History October 04, 2023 - Coronary artery stent Family History Denies colon cancer, colitis Social History + Cig, + ETOH, , [place] Current Medications See "Medication" section Allergies See "Allergy" section ROS Pertinent positives SOB, Syncope, weakness on admission; Denied GI blood loss All other reviewed systems negative Physical Examination Vital Signs: WNL (See "Vital Signs" section) BMI: 22 GENERAL APPEARANCE: Normal development, normal body habitus, [] grooming PSYCHIATRIC: AAO; Comfortable EYES: Pupils equal, round and reactive to light, sclera anicteric EARS, NOSE, MOUTH, THROAT: Hearing normal, Oral mucous membranes moist and without lesions; NECK: No crepitus, lymphadenopathy, or thyromegaly LUNGS: Clear to auscultation without wheezing; No use of accessory muscles to breathe CARDIOVASCULAR: Heart-NSR without murmurs; Palpable carotid arteries - no bruits; Aorta, Femoral, Pedal pulses palpable; Peripheral edema absent ABD: Soft, not distended; no tenderness; no bruising LYMPHATIC: Neck, Axillae, Groin no palpable adenopathy EXTREMITIES: No clubbing, cyanosis, infections SKIN: Anicteric; No rashes, lesions, Ulcerations Labs H&H 7.5/24.1 this morning (after 1 unit PRBC) Antibiotics: None VTEP: SCD Imaging CXR - WNL CT Abd/Pelvis - WNL All images were personally reviewed by me for this encounter. Jaycob Garcia MD, [facility] General Surgery Service [phone]
[2023-10-28] MEDS: PANTOPRAZOLE 40 MG VIAL IV SCH (08:06)
[2023-10-28] MEDS ORDERED: NITROGLYCERIN SL 0.4 MG TABLET SL SCH (10:00)
[2023-10-28] MEDS ORDERED: NITROGLYCERIN SL 0.4 MG TABLET SL PRN (11:03)
--- NOTE | 2023-10-28 11:46 | PHARMACY PROGRESS NOTE ---
- Best Possible Medication History Admit Date and Time: 10/27/232112 Processed by: Pharmacy Medications reviewed in ED?: No Medication History completed: Yes Patient Interview: Completed (by pharmacy technicians Girma and Shweta) Secondary Source(s): Physician records, Insurance records As the person ultimately responsible for medication therapy, providers are able to order a medication from an existing home medication list in [facility] via the "Reconcile Routine" prior to Confirmation of that medication by learning support services director. Such practice is discouraged except when the physician, in their clinical judgment, deems that a medical need exists for a medication without regard to previous use.
[2023-10-28 13:14] LABS: HCT - HEMATOCRIT 28.4 % (42.0-52.0); HGB - HEMOGLOBIN 8.9 g/dL (14.0-18.0)
--- NOTE | 2023-10-28 13:27 | PROVIDER PROGRESS NOTE ---
Subjective - Prog Note Date Prog Note Date: 10/28/23 Prog Note Time: 13:30 - Subjective Pt reports feeling: No change Subjective: The patient is a 73-year-old gentleman who had an NSTEMI earlier this month. He had a stent placed during the procedure and is on dual antiplatelet therapy with a low-dose aspirin and Effient. He presented to the emergency room with confusion that were noted by his neighbors. He said that he had been quite weak and he reportedly told the admitting provider that he was having bright red blood per rectum. In the emergency room he was found to have a hemoglobin of 7.5 then dropped down to 6.9. He received 1 unit of packed red blood cells and his hemoglobin improved but then drifted back down to 7.5 this morning. The patient does appear to be quite confused. In the emergency room he had an MRI of the brain which reveals microvascular ischemic changes as well as moderate atrophy. He tells me that he has been feeling confused for several months. He denies fever or chills. He has had no further episodes of chest pain. No heart palpitations. He has had no nausea or vomiting. He could not recall whether he had had any blood in his stool when I saw him this morning. He has no urinary complaints. Current Medications - Current Medications Current Medications: Acetaminophen 650 mg p.o. every 6 hours as needed Aspirin 81 mg daily Lisinopril 5 mg daily Metoprolol tartrate 25 mg p.o. twice daily Nicotine 21 mg patch daily Nitroglycerin 0.4 mg sublingual as needed chest pain Ondansetron 4 mg IV every 6 hours as needed nausea Protonix 40 mg IV twice daily Effient 10 mg p.o. daily Objective - Vital Signs/Intake & Output Reviewed Vital Signs: Yes Vital Signs: Vital Signs x48h Temp Pulse Resp BP Pulse Ox 10/28/23 12:15 36.1 C L 56 L 19 133/61 H 100 10/28/23 09:07 36.7 C 60 19 131/57 H 100 10/28/23 08:44 36.5 C 65 18 136/64 H 100 10/28/23 08:00 37.2 C 61 18 155/67 H 99 Intake & Output: Intake & Output 10/25/23 10/26/23 10/27/23 10/28/23 23:59 23:59 23:59 23:59 Intake Total 1310 1323.333 Output Total 200 825 Balance 1110 498.333 - Objective General Appearance: positive: No acute distress, Alert, Other (Quite confused as to his situation.) Eyes Bilateral: positive: Normal inspection ENT: positive: ENT inspection nml Neck: positive: Nml inspection Respiratory: positive: Chest non-tender, No respiratory distress Cardiovascular: positive: Regular rate & rhythm, No murmur, No gallop. negative: Friction rub Abdomen: positive: Non-tender, No organomegaly, Nml bowel sounds, No distention Skin: positive: Color nml, No rash, Warm Extremities: positive: Non-tender, Full ROM Neurologic/Psychiatric: positive: Oriented x3 (However the patient is quite c onfused as to the the circumstances of his admission and his recent NM.), CN's nml (2-) - Lab Results Fish Bones: 10/28/23 13:09 10/28/23 05:16 Other Labs: Lab Results x24hrs 10/28/23 10/28/23 10/28/23 Range/Units 13:09 05:16 05:16 WBC 9.1 (4.8-10.8) x10^3/uL RBC 2.55 L (4.70-6.10) 10^6/uL Hgb 8.9 L 7.5 L (14.0-18.0) g/dL Hct 28.4 L 24.1 L (42.0-52.0) % MCV 94.5 H (80.0-94.0) fL MCH 29.4 (27.0-31.0) pg MCHC 31.1 L (32.0-36.0) g/dL RDW 14.5 (12.0-15.0) % Plt Count 409 (130-450) 10^3/uL MPV 9.3 (7.4-11.4) fL Neut # (Auto) 6.5 (1.5-6.6) 10^3/uL Lymph # (Auto) 1.1 L (1.5-3.5) 10^3/uL Hendricks # (Auto) 1.0 (0.0-1.0) 10^3/uL Eos # (Auto) 0.5 (0.0-0.7) 10^3/uL Baso # (Auto) 0.1 (0.0-0.1) 10^3/uL Absolute Nucleated RBC 0.00 x10^3/uL Nucleated RBC % 0.0 /100WBC ESR (0-20) mm/Hr Sodium 139 (135-145) mmol/L Potassium 4.1 (3.5-4.5) mmol/L Chloride 110 (101-111) mmol/L Carbon Dioxide 25 (21-32) mmol/L Anion Gap 4.0 L (6-13) BUN 29 H (6-20) mg/dL Creatinine 0.7 (0.6-1.3) mg/dL Estimated GFR (MDRD) 111 (>89) Glucose 102 (74-104) mg/dL Calcium 8.7 (8.5-10.3) mg/dL Phosphorus (2.5-5.0) mg/dL Magnesium 1.9 (1.7-2.3) mg/dL Total Bilirubin 0.5 (0.2-1.0) mg/dL AST 15 (10-42) IU/L ALT 18 (10-60) IU/L Alkaline Phosphatase 61 (42-121) IU/L Troponin I High Sens (2.3-19.7) ng/L Total Protein 5.5 L (6.4-8.9) g/dL Albumin 3.4 (3.2-5.5) g/dL Globulin 2.1 (2.1-4.2) g/dL Albumin/Globulin Ratio 1.6 (1.0-2.2) Triglycerides (48-352) mg/dL Cholesterol ( - 200) mg/dL LDL Cholesterol, Calc ( - 129) mg/dL VLDL Cholesterol mg/dL HDL Cholesterol (60 - ) mg/dL LDL/HDL Ratio (<3.6) Cholesterol/HDL Ratio (<5.0) TSH (0.34-5.60) uIU/mL Urine Color Urine Clarity (CLEAR) Urine pH (5.0-7.5) PH Ur Specific [place] (1.002-1.030) Urine Protein (NEGATIVE) mg/dL Urine Glucose (UA) (NEGATIVE) mg/dL Urine Ketones (NEGATIVE) mg/dL Urine Occult Blood (NEGATIVE) Urine Nitrite (NEGATIVE) Urine Bilirubin (NEGATIVE) Urine Urobilinogen (NORMAL) E.U./dL Ur Leukocyte Esterase (NEGATIVE) Ur Microscopic Review Urine Culture Comments Blood Type Blood Type Recheck Antibody Screen Crossmatch IS Only 10/27/23 10/27/23 10/27/23 Range/Units 23:54 23:54 23:54 WBC 10.5 (4.8-10.8) x10^3/uL RBC 2.78 L (4.70-6.10) 10^6/uL Hgb 8.3 L (14.0-18.0) g/dL Hct 26.3 L (42.0-52.0) % MCV 94.6 H (80.0-94.0) fL MCH 29.9 (27.0-31.0) pg MCHC 31.6 L (32.0-36.0) g/dL RDW 14.3 (12.0-15.0) % Plt Count 453 H (130-450) 10^3/uL MPV 9.5 (7.4-11.4) fL Neut # (Auto) 7.5 H (1.5-6.6) 10^3/uL Lymph # (Auto) 1.4 L (1.5-3.5) 10^3/uL Hendricks # (Auto) 1.1 H (0.0-1.0) 10^3/uL Eos # (Auto) 0.4 (0.0-0.7) 10^3/uL Baso # (Auto) 0.1 (0.0-0.1) 10^3/uL Absolute Nucleated RBC 0.00 x10^3/uL Nucleated RBC % 0.0 /100WBC ESR (0-20) mm/Hr Sodium 139 (135-145) mmol/L Potassium 3.9 (3.5-4.5) mmol/L Chloride 110 (101-111) mmol/L Carbon Dioxide 24 (21-32) mmol/L Anion Gap 5.0 L (6-13) BUN 34 H (6-20) mg/dL Creatinine 0.8 (0.6-1.3) mg/dL Estimated GFR (MDRD) 95 (>89) Glucose 97 (74-104) mg/dL Calcium 8.7 (8.5-10.3) mg/dL Phosphorus (2.5-5.0) mg/dL Magnesium 2.1 (1.7-2.3) mg/dL Total Bilirubin 0.4 (0.2-1.0) mg/dL AST 17 (10-42) IU/L ALT 19 (10-60) IU/L Alkaline Phosphatase 64 (42-121) IU/L Troponin I High Sens (2.3-19.7) ng/L Total Protein 6.1 L (6.4-8.9) g/dL Albumin 3.7 (3.2-5.5) g/dL Globulin 2.4 (2.1-4.2) g/dL Albumin/Globulin Ratio 1.5 (1.0-2.2) Triglycerides 77 (48-352) mg/dL Cholesterol 121 ( - 200) mg/dL LDL Cholesterol, Calc 54 ( - 129) mg/dL VLDL Cholesterol 15 mg/dL HDL Cholesterol 52 L (60 - ) mg/dL LDL/HDL Ratio 1.0 (<3.6) Cholesterol/HDL Ratio 2.3 (<5.0) TSH 3.70 (0.34-5.60) uIU/mL Urine Color Urine Clarity (CLEAR) Urine pH (5.0-7.5) PH Ur Specific [place] (1.002-1.030) Urine Protein (NEGATIVE) mg/dL Urine Glucose (UA) (NEGATIVE) mg/dL Urine Ketones (NEGATIVE) mg/dL Urine Occult Blood (NEGATIVE) Urine Nitrite (NEGATIVE) Urine Bilirubin (NEGATIVE) Urine Urobilinogen (NORMAL) E.U./dL Ur Leukocyte Esterase (NEGATIVE) Ur Microscopic Review Urine Culture Comments Blood Type Blood Type Recheck Antibody Screen Crossmatch IS Only 10/27/23 10/27/23 10/27/23 Range/Units 21:00 19:20 19:03 WBC (4.8-10.8) x10^3/uL RBC (4.70-6.10) 10^6/uL Hgb 6.9 L* (14.0-18.0) g/dL Hct 22.9 L (42.0-52.0) % MCV (80.0-94.0) fL MCH (27.0-31.0) pg MCHC (32.0-36.0) g/dL RDW (12.0-15.0) % Plt Count (130-450) 10^3/uL MPV (7.4-11.4) fL Neut # (Auto) (1.5-6.6) 10^3/uL Lymph # (Auto) (1.5-3.5) 10^3/uL Hendricks # (Auto) (0.0-1.0) 10^3/uL Eos # (Auto) (0.0-0.7) 10^3/uL Baso # (Auto) (0.0-0.1) 10^3/uL Absolute Nucleated RBC x10^3/uL Nucleated RBC % /100WBC ESR (0-20) mm/Hr Sodium (135-145) mmol/L Potassium (3.5-4.5) mmol/L Chloride (101-111) mmol/L Carbon Dioxide (21-32) mmol/L Anion Gap (6-13) BUN (6-20) mg/dL Creatinine (0.6-1.3) mg/dL Estimated GFR (MDRD) (>89) Glucose (74-104) mg/dL Calcium (8.5-10.3) mg/dL Phosphorus (2.5-5.0) mg/dL Magnesium (1.7-2.3) mg/dL Total Bilirubin (0.2-1.0) mg/dL AST (10-42) IU/L ALT (10-60) IU/L Alkaline Phosphatase (42-121) IU/L Troponin I High Sens (2.3-19.7) ng/L Total Protein (6.4-8.9) g/dL Albumin (3.2-5.5) g/dL Globulin (2.1-4.2) g/dL Albumin/Globulin Ratio (1.0-2.2) Triglycerides (48-352) mg/dL Cholesterol ( - 200) mg/dL LDL Cholesterol, Calc ( - 129) mg/dL VLDL Cholesterol mg/dL HDL Cholesterol (60 - ) mg/dL LDL/HDL Ratio (<3.6) Cholesterol/HDL Ratio (<5.0) TSH (0.34-5.60) uIU/mL Urine Color YELLOW Urine Clarity CLEAR (CLEAR) Urine pH 6.0 (5.0-7.5) PH Ur Specific [place] 1.020 (1.002-1.030) Urine Protein NEGATIVE (NEGATIVE) mg/dL Urine Glucose (UA) NEGATIVE (NEGATIVE) mg/dL Urine Ketones NEGATIVE (NEGATIVE) mg/dL Urine Occult Blood TRACE-INTA (NEGATIVE) Urine Nitrite NEGATIVE (NEGATIVE) Urine Bilirubin NEGATIVE (NEGATIVE) Urine Urobilinogen 0.2 (NORMAL) (NORMAL) E.U./dL Ur Leukocyte Esterase NEGATIVE (NEGATIVE) Ur Microscopic Review NOT INDICATED Urine Culture Comments NOT INDICATED Blood Type O POSITIVE Blood Type Recheck Antibody Screen NEGATIVE Crossmatch IS Only See Detail 10/27/23 10/27/23 10/27/23 Range/Units 14:50 14:50 14:50 WBC (4.8-10.8) x10^3/uL RBC (4.70-6.10) 10^6/uL Hgb (14.0-18.0) g/dL Hct (42.0-52.0) % MCV (80.0-94.0) fL MCH (27.0-31.0) pg MCHC (32.0-36.0) g/dL RDW (12.0-15.0) % Plt Count (130-450) 10^3/uL MPV (7.4-11.4) fL Neut # (Auto) (1.5-6.6) 10^3/uL Lymph # (Auto) (1.5-3.5) 10^3/uL Hendricks # (Auto) (0.0-1.0) 10^3/uL Eos # (Auto) (0.0-0.7) 10^3/uL Baso # (Auto) (0.0-0.1) 10^3/uL Absolute Nucleated RBC x10^3/uL Nucleated RBC % /100WBC ESR 45 H (0-20) mm/Hr Sodium (135-145) mmol/L Potassium (3.5-4.5) mmol/L Chloride (101-111) mmol/L Carbon Dioxide (21-32) mmol/L Anion Gap (6-13) BUN (6-20) mg/dL Creatinine (0.6-1.3) mg/dL Estimated GFR (MDRD) (>89) Glucose (74-104) mg/dL Calcium (8.5-10.3) mg/dL Phosphorus 4.0 (2.5-5.0) mg/dL Magnesium 2.1 (1.7-2.3) mg/dL Total Bilirubin (0.2-1.0) mg/dL AST (10-42) IU/L ALT (10-60) IU/L Alkaline Phosphatase (42-121) IU/L Troponin I High Sens 25.7 H* (2.3-19.7) ng/L Total Protein (6.4-8.9) g/dL Albumin (3.2-5.5) g/dL Globulin (2.1-4.2) g/dL Albumin/Globulin Ratio (1.0-2.2) Triglycerides (48-352) mg/dL Cholesterol ( - 200) mg/dL LDL Cholesterol, Calc ( - 129) mg/dL VLDL Cholesterol mg/dL HDL Cholesterol (60 - ) mg/dL LDL/HDL Ratio (<3.6) Cholesterol/HDL Ratio (<5.0) TSH (0.34-5.60) uIU/mL Urine Color Urine Clarity (CLEAR) Urine pH (5.0-7.5) PH Ur Specific [place] (1.002-1.030) Urine Protein (NEGATIVE) mg/dL Urine Glucose (UA) (NEGATIVE) mg/dL Urine Ketones (NEGATIVE) mg/dL Urine Occult Blood (NEGATIVE) Urine Nitrite (NEGATIVE) Urine Bilirubin (NEGATIVE) Urine Urobilinogen (NORMAL) E.U./dL Ur Leukocyte Esterase (NEGATIVE) Ur Microscopic Review Urine Culture Comments Blood Type Blood Type Recheck Antibody Screen Crossmatch IS Only 10/27/23 Range/Units 12:36 WBC (4.8-10.8) x10^3/uL RBC (4.70-6.10) 10^6/uL Hgb (14.0-18.0) g/dL Hct (42.0-52.0) % MCV (80.0-94.0) fL MCH (27.0-31.0) pg MCHC (32.0-36.0) g/dL RDW (12.0-15.0) % Plt Count (130-450) 10^3/uL MPV (7.4-11.4) fL Neut # (Auto) (1.5-6.6) 10^3/uL Lymph # (Auto) (1.5-3.5) 10^3/uL Hendricks # (Auto) (0.0-1.0) 10^3/uL Eos # (Auto) (0.0-0.7) 10^3/uL Baso # (Auto) (0.0-0.1) 10^3/uL Absolute Nucleated RBC x10^3/uL Nucleated RBC % /100WBC ESR (0-20) mm/Hr Sodium (135-145) mmol/L Potassium (3.5-4.5) mmol/L Chloride (101-111) mmol/L Carbon Dioxide (21-32) mmol/L Anion Gap (6-13) BUN (6-20) mg/dL Creatinine (0.6-1.3) mg/dL Estimated GFR (MDRD) (>89) Glucose (74-104) mg/dL Calcium (8.5-10.3) mg/dL Phosphorus (2.5-5.0) mg/dL Magnesium (1.7-2.3) mg/dL Total Bilirubin (0.2-1.0) mg/dL AST (10-42) IU/L ALT (10-60) IU/L Alkaline Phosphatase (42-121) IU/L Troponin I High Sens (2.3-19.7) ng/L Total Protein (6.4-8.9) g/dL Albumin (3.2-5.5) g/dL Globulin (2.1-4.2) g/dL Albumin/Globulin Ratio (1.0-2.2) Triglycerides (48-352) mg/dL Cholesterol ( - 200) mg/dL LDL Cholesterol, Calc ( - 129) mg/dL VLDL Cholesterol mg/dL HDL Cholesterol (60 - ) mg/dL LDL/HDL Ratio (<3.6) Cholesterol/HDL Ratio (<5.0) TSH (0.34-5.60) uIU/mL Urine Color Urine Clarity (CLEAR) Urine pH (5.0-7.5) PH Ur Specific [place] (1.002-1.030) Urine Protein (NEGATIVE) mg/dL Urine Glucose (UA) (NEGATIVE) mg/dL Urine Ketones (NEGATIVE) mg/dL Urine Occult Blood (NEGATIVE) Urine Nitrite (NEGATIVE) Urine Bilirubin (NEGATIVE) Urine Urobilinogen (NORMAL) E.U./dL Ur Leukocyte Esterase (NEGATIVE) Ur Microscopic Review Urine Culture Comments Blood Type Blood Type Recheck O POSITIVE Antibody Screen Crossmatch IS Only - Diagnostic Imaging Diagnostic Imaging Results: positive: Final report reviewed ABX Reporting Has patient been on IV antibiotics over the past 48 hours?: No Sepsis Event Note (H) - Evaluation Current Stage of Sepsis: Ruled out Assessment/Plan - Problem List (1) Acute blood loss anemia Impression: The patient appears to be having a GI bleed. He told the admitting provider that he was having bright red blood per rectum. This morning he told me he could not remember if he was having bloody stools or black stools. He is receiving his second unit of blood. Will continue to monitor H&H as and transfuse as needed. (2) GI bleed Impression: The patient is on dual antiplatelet therapy due to his recent stent placement. Unfortunately this cannot be stopped at this time. He is on 40 mg of IV Protonix twice daily. General surgery evaluated the patient and does not feel that it is safe to perform any sort of endoscopic procedure in light of his recent STEMI and stent placement. I have reached out to [facility] which is where he had his stent placed for consideration of possible transfer. They have not gotten back in touch with me as of the time of this dictation (3) CAD (coronary artery disease) Impression: The patient had a recent STEMI with stent placement earlier this month. He is on an aspirin and Effient. He is on lisinopril 5 mg daily and metoprolol tartrate 25 mg p.o. twice daily. He also will continue atorvastatin 80 mg daily. Again efforts are underway to transfer the patient to [facility] which is where he had his stent placed. I believe he needs cardiology and GI to decide what to do about his DAPT and his GI bleed. The patient has a mildly elevated troponins but they are flat. No complaints of chest pain at this time. (4) Cerebral atherosclerosis Impression: The patient's neighbors reported that the patient has been confused. He tells me that he has been confused for several months. He had an MRI of the brain which revealed microvascular ischemic changes as well as moderate atrophy. 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 He seems significantly confused about his recent STEMI and follow-up. He canceled his follow-up at [facility] because he said it was too far for him to drive. He scheduled a new patient appointment with a service tech/welder in [place] which I believe is farther away. He seems quite confused about his medications. He tells me that he lives alone. He may benefit from transition to assisted living. I did discuss this with him and he is somewhat interested but is not sure he can afford it. Will have the social workers touch base with him. (5) Hyperlipidemia Impression: Continue atorvastatin 80 mg daily (6) Tobacco use disorder Impression: The patient has a nicotine patch in place. (7) Bradycardia Impression: Likely due to beta-nataliya. Mild and asymptomatic. Time spent: 35 minutes I am in the process of trying to transfer this patient to [facility] but have had no response from the transfer center. I have discussed this patient with Dr. Torres. He is in agreement with this assessment and plan
[2023-10-28 14:43] LABS: ESTIMATED AVERAGE GLUCOSE 105 mg/dL (70-100); HEMOGLOBIN A1c% 5.3 % (4.27-6.07)
[2023-10-28] MEDS: METOPROLOL TARTRATE 25 MG TABLET PO SCH (21:15)
[2023-10-28] MEDS: ATORVASTATIN 40 MG TABLET PO SCH (21:16)
[2023-10-29 00:30] VITALS: BP 146/61; O2SAT 99
--- NOTE | 2023-10-29 08:44 | DISCHARGE SUMMARY ---
Discharge Summary Admit Date: 10/28/23 Discharge Date: 10/29/23 Discharging Provider: Ebenezer Torres Code Status: Attempt Resuscitation Condition at Discharge: Poor Discharge Disposition: 02 Transfer Acute Care Hosp Discharge Facility Name: [facility] History of Present Illness: pt with h/o cad and recent stemi early september 2023, s/p stent placement x 2, on effient and asa. currently presents with confusion / ams as noted by neighbors and caregivers and even self-reported. no falls, seizures, head injuries. pt also reports feeling overall weak and having brbpr. no dysuria or hematuria. no chest pain, sob, fevers, chills. no MARKS. pt states having h/o noticing blood in stools and denies ever having a colonoscopy in the past. he reports h/o constipation and has taken senna supplements. - HOSPITAL COURSE Hospital Course: Patient is a 73-year-old male with a past medical history of a recent stent placement who presented to the ED due to confusion noted by his neighbors. Upon presentation he did complain of blood in his stools and was noted to be anemic with a hemoglobin of 7.5 which decreased to 6.9. Patient was admitted and started on a blood transfusion and his hemoglobin improved to 8.3. General surgery was consulted however given his recent stent placement and being on dual antiplatelet therapy with Effient and aspirin they felt that he was too high risk for any type of procedure at the current time. Transfer was therefore initiated to [facility] where he received his stent. He was subsequently discharged on 10/27. He received a total of 2 units of packed red blood cells. Patient had a hemoglobin of 8.9 on discharge. - ALLERGIES Allergies/Adverse Reactions: Allergies Allergy/AdvReac Type Severity Reaction Status Date / Time No Known Drug Allergies Allergy Verified 10/27/23 11:51 - MEDICATIONS Home Medications: Ambulatory Orders Medication Instructions Recorded Confirmed Aspirin [[place] Aspirin] 81 mg PO DAILY 10/27/23 10/28/23 Metoprolol Tartrate [Lopressor] 25 mg PO BID 10/27/23 10/28/23 Nicotine 21 mg Patch [Nicoderm] 1 patch TD DAILY 10/27/23 10/28/23 Nitroglycerin [Nitrostat] 0.4 mg SL PRN 10/27/23 10/28/23 Pantoprazole [Protonix] 40 mg PO DAILY 10/27/23 10/28/23 Prasugrel HCl 10 mg PO DAILY 10/27/23 10/28/23 lisinopriL [Zestril] 5 mg PO DAILY 10/27/23 10/28/23 Atorvastatin Calcium [Lipitor] 80 mg PO DAILY 10/28/23 10/28/23 - PHYSICAL EXAM AT DISCHARGE General Appearance: positive: No acute distress, Alert Respiratory: positive: Chest non-tender, No respiratory distress, Breath sounds nml Cardiovascular: positive: Regular rate & rhythm, No murmur, No gallop Abdomen: positive: Non-tender, No organomegaly, Nml bowel sounds, No distention - LABS Result Diagrams: 10/28/23 13:09 10/28/23 05:16 - SEPSIS Current Stage of Sepsis: Ruled out - TIME SPENT Time Spent in Discharge (Minutes): 35
[2023-10-29] MEDS ORDERED: NICOTINE 21 MG PATCH TOP SCH (09:00)
[2023-10-29] MEDS ORDERED: ASPIRIN CHEW 81 MG TABLET PO SCH (09:00)
[2023-10-29] MEDS ORDERED: NICOTINE 21 MG PATCH SCH (09:00)
[2023-10-29] MEDS ORDERED: PANTOPRAZOLE 40 MG TABLET PO SCH (09:00)
[2023-10-29] MEDS ORDERED: PRASUGREL HCL 10 MG PO SCH (09:00)
[2023-10-29] MEDS ORDERED: lisinopriL 5 MG TABLET PO SCH (09:00)
== END 2023-10-29 00:35 | disposition short-term general hospital (02) | DRG 812 ==
LOC: ED 11:33 → MS2 21:13
PROVIDERS: ADMIT Student in an Organized Health Care Education/Training Program; ATTEND Family Medicine
PROC: 30233N1 Transfusion of Nonautologous Red Blood Cells into Peripheral Vein, Percutaneous Approach (ICD-10-PCS; principal; 2023-10-28)
DX: D62 Acute posthemorrhagic anemia (principal); D64.9 Anemia, unspecified; K92.1 Melena; R07.9 Chest pain, unspecified; K92.2 Gastrointestinal hemorrhage, unspecified; F17.200 Nicotine dependence, unspecified, uncomplicated; I25.10 Atherosclerotic heart disease of native coronary artery without angina pectoris; I25.2 Old myocardial infarction; E78.00 Pure hypercholesterolemia, unspecified; E86.9 Volume depletion, unspecified; G31.9 Degenerative disease of nervous system, unspecified; R41.82 Altered mental status, unspecified; Z79.02 Long term (current) use of antithrombotics/antiplatelets; Z79.82 Long term (current) use of aspirin; Z79.899 Other long term (current) drug therapy; Z95.5 Presence of coronary angioplasty implant and graft
CPT/HCPCS: 36415; 36430; 70551; 71045; 74176; 80053; 80061; 81003; 82272; 83036; 83690; 83735; 84100; 84443; 84484; 85014; 85018; 85025; 85651; 86850; 86900; 86901; 86920; 93005; 96374; 99285; A9270; J7120; P9016; 80048; 81001; 83721; 87086